=== PATIENT | female | born 1985 | race Caucasian/White ===

== ENCOUNTER 2017-02-24 12:51 | Emergency (ER) | payer OTHER ==
[~2017-02-24] VITALS: Ht 162.6 cm; Wt 59.0 kg
[2017-02-24 12:54] VITALS: BP 126/92
[2017-02-24] MEDS ORDERED: IBUPROFEN 200 MG TABLET ONE (14:15)
[2017-02-24] MEDS ORDERED: IBUPROFEN 200 MG TABLET PO ONE (14:30)
== END 2017-02-24 14:41 | disposition home or self-care (01) ==
LOC: ED 14:35
DX: S60.222A Contusion of left hand, initial encounter (principal); S60.012A Contusion of left thumb without damage to nail, initial encounter; S00.31XA Abrasion of nose, initial encounter; V43.52XA Car driver injured in collision with other type car in traffic accident, initial encounter; Y93.89 Activity, other specified; Y99.8 Other external cause status; Y92.89 Other specified places as the place of occurrence of the external cause
CPT/HCPCS: 29125

== ENCOUNTER → 2018-03-04 | Outpatient (CLI) | payer OTHER | END | disposition home or self-care (01) | LOC: LAB 13:22 | PROVIDERS: ATTEND Emergency Medicine | DX: R53.83 Other fatigue (principal) | CPT/HCPCS: 36415; 86695; 86696; 86704; 86706; 86708; 86803; 87340; 87806; G0475 ==

== ENCOUNTER 2018-09-20 09:38 | Outpatient (CLI) | payer OTHER | END 2018-09-20 23:59 | disposition home or self-care (01) | LOC: CFH 09:38 | PROVIDERS: ATTEND Nurse Practitioner Family | DX: S43.101A Unspecified dislocation of right acromioclavicular joint, initial encounter (principal); M71.311 Other bursal cyst, right shoulder ==

== ENCOUNTER → 2018-11-22 | Outpatient (CLI) | payer OTHER ==
[~2018-11-22] MED LIST: SPIR50TA4 PO
[2018-11-22 14:39] LABS: ALANINE AMINOTRANSFERASE 20 U/L (12-78); ALBUMIN 3.5 g/dL (3.4-5.0); ANION GAP 6 mmol/L (5-15); CALCIUM 8.8 mg/dL (8.5-10.1); CHLORIDE 106 mmol/L (98-107); CREATININE 0.97 mg/dL (0.55-1.02)
[2018-11-22 14:41] LABS: ALKALINE PHOSPHATASE 43 U/L (45-117); BILIRUBIN,TOTAL 0.7 mg/dL (0.2-1.0); TOTAL PROTEIN 7.6 g/dL (6.4-8.2)
== END | disposition home or self-care (01) ==
LOC: STAR 13:31
PROVIDERS: ATTEND Orthopaedic Surgery
DX: Z01.818 Encounter for other preprocedural examination (principal); S43.431A Superior glenoid labrum lesion of right shoulder, initial encounter; M85.611 Other cyst of bone, right shoulder; M75.51 Bursitis of right shoulder; M25.511 Pain in right shoulder; X58.XXXA Exposure to other specified factors, initial encounter; Y93.89 Activity, other specified; Y92.89 Other specified places as the place of occurrence of the external cause; Y99.8 Other external cause status
CPT/HCPCS: 36415; 80053

== ENCOUNTER 2018-12-06 05:27 | Day surgery (SDC) | payer OTHER ==
[~2018-12-06] VITALS: Ht 162.6 cm; Wt 59.1 kg
[2018-12-06] MEDS ORDERED: LACTATED RINGERS 1,000 ML IV SCH (06:03)
[2018-12-06 06:06] VITALS: BP 129/84
[2018-12-06] MEDS ORDERED: FENTANYL PF 100 MCG/2ML ONE (06:21)
[2018-12-06] MEDS ORDERED: MIDAZOLAM 1 MG/ML, 2ML ONE (06:21)
[2018-12-06] MEDS ORDERED: EPINEPHRINE TOPICAL SOLN 1 MG/ML, 30ML ONE (06:27)
[2018-12-06] MEDS ORDERED: BACITRACIN 50,000 UNIT ONE (06:27)
[2018-12-06] MEDS ORDERED: EPINEPHRINE 1 MG/ML, 1ML ONE (06:27)
[2018-12-06 06:29] LABS: HCG UR SG 1.032 (1.003-1.030)
[2018-12-06] MEDS ORDERED: GABAPENTIN 300 MG CAPSULE PO ONE (06:30)
[2018-12-06] MEDS ORDERED: ACETAMINOPHEN 500 MG TABLET PO ONE (06:30)
[2018-12-06] MEDS ORDERED: SCOPOLAMINE PATCH, 1.5MG PATCH.TD72 TD ONE (06:30)
[2018-12-06] MEDS ORDERED: PROPOFOL 50 ML ONE (07:09)
[2018-12-06] MEDS ORDERED: CEFAZOLIN 1,000 MG ONE (07:25)
[2018-12-06] MEDS ORDERED: ONDANSETRON 2MG/ML, 2ML ONE (07:25)
[2018-12-06] MEDS ORDERED: NEOSTIGMINE 1 MG/ML, 10ML ONE (07:25)
[2018-12-06] MEDS ORDERED: GLYCOPYRROLATE 0.2MG/1ML, 5ML ONE (07:25)
[2018-12-06] MEDS ORDERED: ROCURONIUM 10MG/ML,5ML ONE (07:25)
[2018-12-06] MEDS ORDERED: SUCCINYLCHOLINE 20 MG/ML, 10ML ONE (07:25)
[2018-12-06] MEDS ORDERED: PROPOFOL 10 MG/ML, 20ML ONE (07:25)
[2018-12-06] MEDS ORDERED: PROMETHAZINE 25 MG/ML, 1ML IV PRN (08:30)
[2018-12-06] MEDS ORDERED: OXYcodone 5 MG/5 ML ORAL.SOL UDC PO PRN (08:30)
[2018-12-06] MEDS ORDERED: ONDANSETRON ODT 8 MG PO PRN (08:30)
[2018-12-06] MEDS ORDERED: LORazepam 2 MG/ML, 1ML IVPush PRN (08:30)
[2018-12-06] MEDS ORDERED: HYDROmorphone 2 MG/ML, 1ML IVPush PRN (08:30)
[2018-12-06] MEDS ORDERED: ONDANSETRON 2MG/ML, 2ML IV PRN (08:30)
[2018-12-06] MEDS ORDERED: FENTANYL PF 100 MCG/2ML IV PRN (08:30)
[2018-12-06] MEDS ORDERED: DEXAMETHASONE 4 MG/ML, 1ML ONE (15:11)
== END 2018-12-06 10:10 | disposition home or self-care (01) ==
LOC: OUT 05:27
PROVIDERS: ATTEND Orthopaedic Surgery
DX: S43.431A Superior glenoid labrum lesion of right shoulder, initial encounter (principal); M75.41 Impingement syndrome of right shoulder; X58.XXXA Exposure to other specified factors, initial encounter; Y93.89 Activity, other specified; Y92.89 Other specified places as the place of occurrence of the external cause; Y99.8 Other external cause status
CPT/HCPCS: 29807; 29826; 64415; 81025; C1713; J0330; J0690; J1100; J2250; J2405; J2704; J2710; J3010; J3490; J7120; J0171

== ENCOUNTER 2020-05-05 15:32 | Emergency (ER) | payer OTHER ==
[~2020-05-05] VITALS: Ht 162.6 cm; Wt 56.7 kg
[2020-05-05 15:37] VITALS: BP 161/89
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
--- NOTE | 2020-05-05 16:30 | NUR ---
Pt provided with ice pack for comfort.
--- NOTE | 2020-05-05 17:14 | NUR ---
Patient/Caregiver given discharge instructions and they have confirmed that they understand the instructions. Patient ambulatory with steady gait.
== END 2020-05-05 17:16 | disposition home or self-care (01) ==
LOC: ED 17:00
DX: S40.011A Contusion of right shoulder, initial encounter (principal); X58.XXXA Exposure to other specified factors, initial encounter; Y93.89 Activity, other specified; Y92.69 Other specified industrial and construction area as the place of occurrence of the external cause; Y99.8 Other external cause status
CPT/HCPCS: 99283